=== PATIENT | male | born 1995 | race Caucasian/White ===

== ENCOUNTER 2019-05-15 13:36 | Emergency (ER) | payer OTHER, SELFPAY ==
[2019-05-15 13:39] VITALS: BP 127/69; PULSE 68; RESP 16; TEMP 36.9; O2SAT 98; BMI 25.0
[2019-05-15] MEDS: DEXAMETHASONE 10 MG/ML VIAL PO (15:36)
--- NOTE | 2019-05-15 15:51 | ED.URI ---
HPI - URI/Sore Throat <MARCOS Flanagan - Last Filed: 05/15/19 21:59> General Chief Complaint: Upper Respiratory Symptoms Stated Complaint: tonsils swollen/extremely painful Time Seen by Provider: 05/15/19 15:04 Source: patient Mode of arrival: ambulatory Limitations: no limitations History of Present Illness HPI Narrative: [age] old healthy male presents emergency department today complaining of a sore throat that ?looks nasty ?when he looks at it in the mirror. He states he noticed he had a dull aching 6/10 sore throat that started a week ago, pain is worse with swallowing. He denies taking any medications for the pain. He noticed executed a on his tonsils few days ago. He states that he is uncertain if he had any fevers as he was informed of the last week and it was very hot outside. Denies any chills, difficulty swallowing food, nasal congestion, cough, shortness of breath, chest pain, difficulty breathing or talking, or any sick contacts. Related Data Previous Rx's Medication Instructions Recorded amoxicillin 500 mg PO BID 10 Days #20 cap 05/15/19 Allergies Allergy/AdvReac Type Severity Reaction Status Date / Time No Known Drug Allergies Allergy Verified 05/15/19 13:39 Review of Systems <MARCOS Flanagan - Last Filed: 05/15/19 21:59> Review of Systems Narrative: REVIEW OF SYSTEMS: GENERAL: Denies fever or chills. HENT: No head trauma, hearing loss. Complains of sore throat, see HPI. EYES: No loss of vision, double vision, eye pain, or irritation. CARDIOVASCULAR: No chest pain or syncope. RESPIRATORY: No shortness of breath or cough. GASTROINTESTINAL: No nausea, vomiting, diarrhea, or constipation. GENITOURINARY: No flank pain or dysuria. MUSCULOSKELETAL: No pain, weakness, or deformities. INTEGUMENTARY: No rash, lesions, or pruritus. NEURO: No numbness, tingling, memory loss, or confusion. PSYCH: No behavior or mood changes. PFSH <MARCOS Flanagan - Last Filed: 05/15/19 21:59> Medical History No significant medical problems (Acute) Social History Smoking Status: Current every day smoker Social History Smoking Status: Current every day smoker Exam <MARCOS Flanagan - Last Filed: 05/15/19 21:59> Initial Vital Signs Initial Vital Signs: Vital Signs Temperature 98.5 F 05/15/19 13:39 Pulse Rate 68 05/15/19 13:39 Respiratory Rate 16 05/15/19 13:39 Blood Pressure 127/69 05/15/19 13:39 Pulse Oximetry 98 05/15/19 13:39 PHYSICAL EXAMINATION: GENERAL: Well groomed, alert, and cooperative. Answers questions promptly and appropriately. Vital signs noted. HENT: Normocephalic, atraumatic. Ear canals patent. Oral mucosa is pink and moist. Oropharynx with erythema, tonsils enlarged 2+ egqually with significant exudate. Halitosis present. Uvula is midline, occasionally sticks to the side of tonsils but is not deviated. Patient is able to talk in full sentences and swallow upon request. Patient is also maintaining secretions very well. Patient is able to eat and drink without difficulty as well swallow pills. Patient's voice sounded slightly congested but was clear, the congestion improved after administration of dexamethasone. EYES: Conjunctiva pink, sclera white, no periorbital swelling. LYMPH: Submandibular glands swollen and tender. CARDIOVASCULAR: S1 and S2 sounds normal. Regular rate and rhythm, no murmurs, clicks, or bruits. No pedal edema. RESPIRATORY: Normal respiratory rate, trachea midline, airway patent. No stridor, nasal flaring or accessory muscle use. Lungs are clear in all cheng without wheeze, rhonchi, or crackles. No cough noted during examination. GASTROINTESTINAL: Bowel sounds normoactive. Abdomen is soft and non-tender. No organomegaly. MUSCULOSKELETAL: Normal gait and coordination. Equal tone and mass bilaterally. EXTREMITIES: CMS intact. Moves all extremities. SKIN: Warm, dry, soft, appropriate color for ethnicity. No lesions, rashes, or wounds. NEURO: Alert and Oriented X 3. Good coordination. No ataxia, or sensory deficits, or cognitive issues. PSYCH: Appropriate affect and mood. <Eris Centeno DO - Last Filed: 05/16/19 07:21> Initial Vital Signs Initial Vital Signs: Vital Signs Temperature 98.5 F 05/15/19 13:39 Pulse Rate 68 05/15/19 13:39 Respiratory Rate 16 05/15/19 13:39 Blood Pressure 127/69 05/15/19 13:39 Pulse Oximetry 98 05/15/19 13:39 Course <Arabella BergerMARCOS - Last Filed: 05/15/19 21:59> Course Course Narrative: Dexamethasone was and due to throat swelling in slightly congested voice. Patient was able to tolerate swelling fluids as well as swelling pills. Extensive counseling was given to patient about returning if symptoms worsen or do not resolve in the next days. Antibiotics were given as patient's exam clearly represented bacterial infection besides a negative Strep A. Orders Ordered: Discontinued Medications Amoxicillin (Trimox) 500 mg PO NOW ONE Stop: 05/15/19 16:26 Last Admin: 05/15/19 16:41 Dose: 500 mg Documented by: SUSAN Dexamethasone (Decadron) 10 mg PO NOW ONE Stop: 05/15/19 15:30 Last Admin: 05/15/19 15:36 Dose: 10 mg Documented by: SUSAN Ibuprofen (Advil) 800 mg PO NOW ONE Stop: 05/15/19 16:26 Last Admin: 05/15/19 16:40 Dose: 800 mg Documented by: SUSAN Consultations Consultation #1: Patient staffed Dr. Centeno. Vital Signs Vital signs: Vital Signs - 8 hr 05/15/19 16:41 Pulse Rate 86 Respiratory Rate 20 Blood Pressure 135/68 Pulse Oximetry 98 <Eris Centeno DO - Last Filed: 05/16/19 07:21> Orders Ordered: Discontinued Medications Amoxicillin (Trimox) 500 mg PO NOW ONE Stop: 05/15/19 16:26 Last Admin: 05/15/19 16:41 Dose: 500 mg Documented by: SUSAN Dexamethasone (Decadron) 10 mg PO NOW ONE Stop: 05/15/19 15:30 Last Admin: 05/15/19 15:36 Dose: 10 mg Documented by: SUSAN Ibuprofen (Advil) 800 mg PO NOW ONE Stop: 05/15/19 16:26 Last Admin: 05/15/19 16:40 Dose: 800 mg Documented by: SUSAN Vital Signs Vital signs: Vital Signs - 8 hr 05/15/19 16:41 Pulse Rate 86 Respiratory Rate 20 Blood Pressure 135/68 Pulse Oximetry [address] [facility] - URI/Sore Throat <Arabella BergerMARCOS - Last Filed: 05/15/19 21:59> Medical Records Attestation: I reviewed the patient's medical records. Lab Data Attestation: I reviewed the patient's lab results. Labs: Point of Care Testing Rapid Strep A Negative MDM Narrative Medical decision making narrative: A high suspicion for bacterial pharyngitis (due to extensive exudate on tonsils, course of illness has been a little over a week, and lack of other respiratory symptoms such as cough or nasal congestion, halitosis present, as well as the fact are rapid strep a test only test for strep A ). Low suspicion for tonsillar abscess (patient is able to handle secretions, the uvula is without deviation, patient's symptoms improved after administration ibuprofen and dexamethasone, tonsils are swollen equally, strep A negative). Very strict return precautions given for patient for worsening symptoms especially difficulty swallowing or difficulty managing secretions. Follow-up instructions given. <Eris Centeno DO - Last Filed: 05/16/19 07:21> Lab Data Labs: Point of Care Testing Rapid Strep A Negative Discharge Plan Departure Patient Disposition: Home Clinical Impression: Acute bacterial tonsillitis Discharge Date/Time: 05/15/19 16:42 Instructions: DI for Strep Throat Activity Restrictions/Additional Instructions: Thank you for entrusting me with your care today. As discussed, we have cultured your throat. You will receive a call in 2 days if your antibiotics need to be changed. I have prescribed you an antibiotic, please take as directed. If your symptoms worsen or do not decrease in the next 2 days, please follow up with your primary care provider. Return emergency department if he develops chest pain, difficulty breathing, the inability to swallow, unable to swallow your secretions, high fevers, or syncope. Prescriptions: New amoxicillin 500 mg capsule 500 mg PO BID 10 Days Qty: 20 RF: 0 <Eris Centeno DO - Last Filed: 05/16/19 07:21> Sign Out Provider Sign Out Attestation: I was available for consultation during this patient's emergency department encounter
[2019-05-15] MEDS: IBUPROFEN 400 MG TABLET 800 MG PO (16:40)
[2019-05-15 16:41] VITALS: BP 135/68; PULSE 86; RESP 20; O2SAT 98
[2019-05-15] MEDS: AMOXICILLIN 250 MG CAPSULE 500 MG PO (16:41)
== END 2019-05-15 16:42 | disposition home or self-care (01) ==
PROVIDERS: Emergency Provider Nurse Practitioner
DX: B96.89 Other specified bacterial agents as the cause of diseases classified elsewhere (principal)
CPT/HCPCS: 87070; 87880; 99282; 99283; J1100

== ENCOUNTER 2021-06-04 14:25 | Emergency (ER) | payer OTHER, SELFPAY ==
[2021-06-04 14:33] VITALS: BP 118/80; PULSE 67; RESP 18; TEMP 37; O2SAT 97; BMI 25.7
[2021-06-04] MEDS: ACETAMINOPHEN 325 MG TABLET 975 MG PO (18:17)
[2021-06-04] MEDS: ONDANSETRON 4 MG ODT SL (18:18)
[2021-06-04 18:27] VITALS: BP 129/82; PULSE 60; RESP 16; O2SAT 99
--- NOTE | 2021-06-08 12:37 | ED_ITS ---
HPI - Recheck/Abnormal Lab/Rx <Tashi Enrique PA-C - Last Filed: 06/08/21 12:51> General Chief Complaint: Recheck/Abnormal Lab/Rx Stated Complaint: reseen for left eye bruising Time Seen by Provider: 06/04/21 16:44 Source: patient Mode of arrival: Ambulatory Limitations: no limitations History of Present Illness HPI narrative: 25-year-old male with no reported past medical history presents to the ED status post a skateboarding accident yesterday. Patient states that he was skateboarding in [place], when he fell, injuring his nose. Patient reports that he was evaluated yesterday after the fall,had an MRI that revealed a nasal fracture without displacement, no intracranial bleeds. Patient states that he has been experiencing some headaches, fatigue, nausea today, was asked by his base to go to the ED for further evaluation. Patient denies fever, chills, lightheadedness, dizziness, syncope, shortness of breath, chest pain, cough, abdominal pain, vomiting, visual disturbances. Related Data Allergies Allergy/AdvReac Type Severity Reaction Status Date / Time No Known Drug Allergies Allergy Verified 06/04/21 14:38 Review of Systems <Tashi Enrique PA-C - Last Filed: 06/08/21 12:51> Constitutional Constitutional: Denies chills, Reports fatigue, Denies fever(s), Denies frequent falls, Reports headache(s), Denies lethargy and Denies weakness Eyes Eyes: Denies change in vision, Denies eye discharge, Denies irritation and Denies loss of vision ENT Ears, Nose, Mouth, and Throat: Denies change in voice, Denies dizziness, Reports headache(s), Denies neck pain, Denies sore throat and Denies throat swelling Cardiovascular Cardiovascular: Denies chest pain, Denies irregular heart rhythm, Denies lightheadedness, Denies palpitations, Denies dyspnea, Denies dyspnea on exertion and Denies orthopnea Respiratory Respiratory: Denies cough, Denies dyspnea, Denies dyspnea on exertion and Denies wheezing Gastrointestinal Gastrointestinal: Denies abdominal pain, Denies change in bowel habits, Denies diarrhea, Reports nausea and Denies vomiting Musculoskeletal Musculoskeletal: Denies neck pain and Denies numbness Integumentary/Breasts Skin/Breast: Denies pruritus, Denies erythema, Denies rash and Denies wounds Neurologic Neurologic: Denies behavioral changes, Denies confusion, Denies dizziness, Denies frequent falls, Reports headache(s), Denies loss of vision, Denies numbness and Denies weakness Psychiatric Psychiatric: Denies anxiety, Denies behavioral changes, Denies confusion, Denies depression, Denies homicidal ideation and Denies suicidal ideation Endocrine Endocrine: Reports fatigue, Denies flushing and Denies palpitations Hematologic/Lymphatic Hematologic/Lymphatic: Denies easy bruising Allergic/Immunologic Allergic/Immunologic: Denies urticaria, Denies throat swelling and Denies wheezing Patient History <Tashi Enrique PA-C - Last Filed: 06/08/21 12:51> Medical History No significant medical problems Social History Smoking Status: Current every day smoker Smoking Status: Current every day smoker tobacco type: vaping alcohol intake frequency: a few times a week Substance Use Type: does not use Exam <Tashi Enrique PA-C - Last Filed: 06/08/21 12:51> Initial Vital Signs Initial Vital Signs: Vital Signs Temperature 98.6 F 06/04/21 14:33 Pulse Rate 67 06/04/21 14:33 Respiratory Rate 18 06/04/21 14:33 Blood Pressure 118/80 06/04/21 14:33 Pulse Oximetry 97 06/04/21 14:33 Const General: cooperative HENSC Head: normocephalic and atraumatic Ears: external ears normal and TM's normal bilaterally Nose: No external nose normal ( Minimal swelling to bridge of nose, airway intact) and No nasal discharge Face and sinus: sinuses nontender, face symmetric, no sinus tenderness and No dry mucous membranes Mouth: oral mucosae normal and moist mucous membranes Teeth and gingiva: dentition normal Throat: tonsils normal and uvula midline Eyes Eyelids: eyelids normal Conjunctivae: conjunctivae normal Sclera: sclerae normal Pupils: PERRL EOM: EOM intact bilaterally Other: bruising around the left eye. Vision grossly normal. No conjunctival hemorrhage. EOM normal. PERRLA Neck Neck: normal visual inspection, trachea midline, No lymphadenopathy, No midline deformity and No JVD Lymphatic: No lymphedema Chest Chest: normal inspection of the chest Resp Effort & Inspection: normal respiratory effort, able to speak in complete sentences, no respiratory distress and no use of accessory muscles Auscultation: clear to auscultation bilaterally, no rales, no rhonchi and no wheezes Cardio Rate: regular rate Rhythm: regular rhythm Heart Sounds: no click, no gallops, no murmurs and no rubs Pulses: normal peripheral pulses GI Inspection: non-distended Palpation: soft, no hepatosplenomegaly, No guarding, No pulsatile mass and No tender Auscultation: normal bowel sounds Back/Spine/Pelvis Back: No CVA tenderness Cervical Spine: cervical ROM normal and No pain with cervical ROM Thoracic/Lumbar Spine: thoracic and lumbar spine normal to inspection Skin General: no rashes or lesions noted, No jaundice and No petechiae Neuro General: patient alert, patient oriented x3, gait normal and no focal motor deficits Speech: speech normal Other: CN 1 through 12 intact. PERRLA. Gait normal. Negative [id number], negative rapid alternating movements, negative pronator drift. Extrem General: full ROM, no clubbing, cyanosis or edema, no pedal edema and no calf tenderness Psych Appearance: well kempt Mental Status: mental status grossly normal Attitude: cooperative Thought Content: normal and suicidality Judgment: judgment good <Eris Centeno DO - Last Filed: 06/12/21 18:07> Initial Vital Signs Initial Vital Signs: Vital Signs Temperature 98.6 F 06/04/21 14:33 Pulse Rate 67 06/04/21 14:33 Respiratory Rate 18 06/04/21 14:33 Blood Pressure 118/80 06/04/21 14:33 Pulse Oximetry 97 06/04/21 14:33 Course <Tashi Enrique PA-C - Last Filed: 06/08/21 12:51> Course Course Narrative: Given reassuring physical exam, prior MRI with no intracranial bleed, will discharge home with postconcussion counseling, strict ED return precautions, PCP follow-up. Orders Ordered: Discontinued Medications Acetaminophen (Acetaminophen 325 Mg Tablet) 975 mg PO NOW ONE Stop: 06/04/21 18:05 Last Admin: 06/04/21 18:17 Dose: 975 mg Documented by: ANGELI Ondansetron HCl (Ondansetron 8 Mg Tablet) 4 mg PO NOW ONE Stop: 06/04/21 18:05 Last Admin: 06/04/21 18:18 Dose: Not Given Documented by: ANGELI Ondansetron HCl (Ondansetron 4 Mg Odt) 4 mg SL NOW ONE Stop: 06/04/21 18:08 Last Admin: 06/04/21 18:18 Dose: 4 mg Documented by: ANGELI <Eris Centeno DO - Last Filed: 06/12/21 18:07> Orders Ordered: Discontinued Medications Acetaminophen (Acetaminophen 325 Mg Tablet) 975 mg PO NOW ONE Stop: 06/04/21 18:05 Last Admin: 06/04/21 18:17 Dose: 975 mg Documented by: ANGELI Ondansetron HCl (Ondansetron 8 Mg Tablet) 4 mg PO NOW ONE Stop: 06/04/21 18:05 Last Admin: 06/04/21 18:18 Dose: Not Given Documented by: ANGELI Ondansetron HCl (Ondansetron 4 Mg Odt) 4 mg SL NOW ONE Stop: 06/04/21 18:08 Last Admin: 06/04/21 18:18 Dose: 4 mg Documented by: ANGELI [facility] - Recheck/Abnormal Lab/Rx <Tashi Enrique PA-C - Last Filed: 06/08/21 12:51> [facility] Narrative Medical decision making narrative: 25-year-old male with no reported past medical history presents to the ED status post a skateboarding accident yesterd ay. Patient endorses nausea, headache, fatigue. Physical exam reassuring with minimal swelling of the nose, intact airway. Patient is neurologically intact with steady gait. Given prior MRI and reassuring physical exam, patient's symptoms consistent with post concussive syndrome. Will give Zofran, Tylenol for symptoms. Will discharge home with post concussion care, PCP follow-up, strict ED return precautions. Discharge Plan Departure Patient Disposition: Home Clinical Impression: Concussion Qualifiers: Encounter type: initial encounter Loss of consciousness presence/duration: without LOC Qualified Code(s): S06.0X0A - Concussion without loss of consciousness, initial encounter Instructions: DI for Concussion Activity Restrictions/Additional Instructions: You were evaluated in the ED today for a concussion. Given that you had an MRI to rule out an intracranial bleed, and were diagnosed with a fractured nose, your symptoms are most likely due to a concussion that she sustained from the fall. It is common post a concussion, to experience symptoms such is nausea, headaches, irritability, fatigue. You can take Tylenol for pain. It is advisable to have cognitive and physical rest until you recover from the concussion. Return to the ED if you have worsening of symptoms. Follow-up with your PCP for concussion management. Stand Alone Forms: Work Release Note <Eris Centeno, DO - Last Filed: 06/12/21 18:07> Cosign ED Attending Cosignature Attestation: Dr Centeno Co-Sign Statement: I was available for consultation during this patient's emergency department visit. This chart is signed by myself for administrative purposes only. I did not have direct contact with this patient during this visit. They were seen independently by the APC.
== END 2021-06-04 18:27 | disposition home or self-care (01) ==
PROVIDERS: Emergency Provider Student in an Organized Health Care Education/Training Program
DX: S06.0X9A Concussion with loss of consciousness of unspecified duration, initial encounter (principal); S02.2XXA Fracture of nasal bones, initial encounter for closed fracture; V00.138A Other skateboard accident, initial encounter
CPT/HCPCS: 99282; 99283